=== PATIENT | male | born 1945 | race Caucasian/White ===

== ENCOUNTER 2016-10-20 13:13 | Day surgery (SDC) | payer MEDICARE, BC, OTHER ==
[~2016-10-20] VITALS: Ht 170.2 cm; Wt 81.3 kg
[~2016-10-20 13:13] MED LIST: ACET500C4; ACETAMINOPHEN 325 MG TAB PO PRN; ACETYLCHOLINE OPHTH SOLN 1% 2ML (MIOCHOL-E) As Ordered ONE; ACUV0.45 OS; BALANCED SALT IRRIGATION SOLUTION 500ML BAG (FOR OR EYE MACHINE) As Ordered ONE; BSS with VANC/TOB/EPI for EYE CASES IR ONE; CEFUROXIME 1MG/0.1ML INTRACAMERAL INJ As Ordered ONE; COMB0.2S OU; CYCLOPENTOLATE 2% OPHTH SOLN 2ML BTL OS ONE; D5W/0.2% SODIUM CHLORIDE 250 ML IV ONE; FERR325T3 PO; FISH120012; HEALON DUET (HEALON 10MG/ML 0.55ML & HEALON ENDOCOAT 30MG/ML 0.85ML) As Ordered ONE; LEVO137T2 PO; LIDOCAINE 1% SDV 5 ML VIAL As Ordered ONE; LIDOCAINE 3.5 % 1ML OPHTH TOPICAL GEL OU ONE; MULTCAP; OFLOXACIN 0.3 % (OCUFLOX) OPTH SOL 5ML OS ONE; OMEP20CA3 PO; PHENYLEPHRINE 2.5% OPHTH SOL 2ML OS ONE; POVIDONE-IODINE 5% OPHTH PREP SOL 30ML As Ordered ONE; PROPARACAINE 0.5% OPHTH SOL 15ML OS PRN; TRAV04OPD OU; TROPICAMIDE 1% OPHTH SOLN 2ML OS ONE
[2016-10-20] MEDS ORDERED: TOBRADEX OPHTH OINT 3.5 GM As Ordered ONE (14:45)
[2016-10-20] MEDS ORDERED: BETAMETHASONE SOLUSPAN 6MG/ML INJ 5ML (J0702) As Ordered ONE (14:45)
[2016-10-20] MEDS ORDERED: TOBRAMYCIN INJ 80 MG/2 ML VIAL (J3260) As Ordered ONE (14:47)
[2016-10-20] MEDS ORDERED: mitoMYcin 0.2 MG/VIAL KIT FOR OPHTHALMIC USE (J7315 PER 0.2MG) As Ordered ONE (15:06)
[2016-10-20] MEDS ORDERED: fentaNYL 100 MCG/2 ML INJECTION (J3010) As Ordered ONE ×2 (15:17→15:21)
[2016-10-20] MEDS ORDERED: MIDAZOLAM INJ 2 MG/2 ML VIAL (J2250) As Ordered ONE (15:17)
[2016-10-20] MEDS ORDERED: TRIMETHOBENZAMIDE 300 MG CAP PO PRN (16:15)
[2016-10-20] MEDS ORDERED: AcetaZOLAMIDE 500 MG ER CAP PO ONE (16:15)
[2016-10-20] MEDS ORDERED: KETOROLAC 0.5% OPHTH SOLN OS ONE (16:15)
[2016-10-20 16:30] VITALS: BP 140/72
--- NOTE | 2016-10-21 06:47 | RO ---
DATE OF PROCEDURE: 10/20/2016 PREOPERATIVE DIAGNOSIS: Open angle glaucoma left eye. POSTOPERATIVE DIAGNOSIS: Open angle glaucoma left eye. PROCEDURE: Insertion of Ex-Press shunt left eye. SURGEON: Regine Whitt MD WET MACHINE OPERATOR: ANESTHESIA: Topical sedation. The patient was prepped and draped in the usual fashion. A lid speculum was placed between the lids. Sheri scissors used to make a superior fornix based conjunctival flap and the underlying Tenon's capsule was removed and the area was cauterized with the [place] cautery. 1% nonpreserved lidocaine was injected subconjunctivally and peribulbarly to provide more anesthesia. A partial thickness scleral flap was made in a triangular fashion with the base at the cornea and carried up onto clear cornea to create a scleral flap. A pledget of mitomycin-C was placed underneath this conjunctiva and left in place for 1 minute and 30 seconds. The eye was then irrigated with about 15 mL of balanced salt solution. A 25-gauge needle was used to make a needle tract into the anterior chamber and then the Ex-Press shunt was placed through this premade needle tract. The scleral flap was then closed using three #10-0 nylon sutures, one at the apex, one at each wing. The conjunctiva was then closed using two #8-0 Vicryl sutures, one at each wing, and #10-0 nylon suture to the center to the clear cornea. TobraDex ointment was applied and patch and shield were placed. The patient tolerated the procedure well and went to recovery room in stable condition.
== END 2016-10-20 16:45 | disposition home or self-care (01) ==
LOC: M SDC 13:13
PROVIDERS: ATTEND Ophthalmology
DX: H40.10X0 Unspecified open-angle glaucoma, stage unspecified (principal); E03.9 Hypothyroidism, unspecified; K21.9 Gastro-esophageal reflux disease without esophagitis; Z92.21 Personal history of antineoplastic chemotherapy; Z85.79 Personal history of other malignant neoplasms of lymphoid, hematopoietic and related tissues; Z87.891 Personal history of nicotine dependence; Z79.899 Other long term (current) drug therapy; Z91.010 Allergy to peanuts
CPT/HCPCS: 66183; C1783; J2250; J3010; J7315